=== PATIENT | female | born 1965 | race African-American/Black ===

== ENCOUNTER 2020-05-19 18:18 | Inpatient (IN) | payer BC, OTHER ==
[2020-05-19] VITALS (9 sets, daily range): BP systolic 151–229; BP diastolic 80–111
[~2020-05-19] VITALS: Ht 175.3 cm; Wt 101.2 kg
--- NOTE | ~2020-05-19 | HC ---
[facility] [place] [address] CONSULTATION Name: KATI JONES Room #: 244-P ADM IN M.R.#: [id number] Admission: 05/19/20 Attend Phys: Kan Flores MD Discharge: Date of : 69 Report #: [id number] THIS REPORT FOR: cc: RYAN - No family physician/PCP RYAN - No family physician/PCP Arsalan Jasso MD ~ DATE OF SERVICE: 05/19/2020 HISTORY OF PRESENT ILLNESS: A 54-year-old female patient who was seen by me for stroke. The patient's symptoms started at 1:00 p.m. today. She noticed right-sided weakness and some difficulty with the speech. 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 She decided to come to the Emergency Room this evening because she thinks she became worse. She had a very high blood pressure when she came in. She is on antihypertensive. She has not taken her blood pressure for a long time, so we do not know how much control the blood pressure is in this patient. REVIEW OF SYSTEMS: Indicate that she is antihypertensive, the control of blood pressure is not clear. She smokes on a daily basis. She drinks alcohol on a daily basis, but according to her, she did not drink that much, but she does not specify. The only medicine that she takes is lisinopril. I do not even know when was the last time the blood pressure was checked in this patient. A 14-point review of system was carried out, the main problem she has is hypertension. It looks like it is pretty severe hypertension. She did not have stroke in the past. PAST MEDICAL HISTORY: Negative for stroke. FAMILY HISTORY: Positive for what looks like stroke. SOCIAL HISTORY: She smokes and drinks alcohol. PHYSICAL EXAMINATION: The patient is alert, responsive. Her speech is markedly dysarthric. She has no problems comprehending but expression is severely impaired and this is because of dysarthria. Cranial nerve examination 2-12 was carried out. She does not appear to have any hemianopsia, but she has a right facial palsy. She has either grade 1 or grade 2 strength in right upper extremity. In the right lower extremity, her strength is 3/5. She says she can feel on both sides equally and her position sense is intact on the right side also. So, it appeared to be predominantly motor deficit. There is no meningeal sign. There is no carotid bruit. She is morbidly obese. Her cardiac examination is unremarkable. Blood pressure is 175/84, pulse is 99, respirations [address]. [address] [address] CONSULTATION Name: KATI JONES Room #: [facility] IN M.R.#: [id number] Admission: 05/19/20 Attend Phys: Kan Flores MD Discharge: Date of : 69 Report #: [id number] LABORATORY DATA: White count is 7.1, but she is anemic at a hemoglobin of 9.6. Potassium was a trace low at 3.0. GFR is normal at 80. She had a CT and CT angiogram. That does not appear to be showing any retrievable clot. IMPRESSION: The patient's clinical presentation is consistent with lacunar subcortical CVA. She has pretty profound deficit. The deficit has become worse since 1:00. There is typical history of subcortical lacunar cerebrovascular accident, where they continued to become worse and many times become completely paralyzed before this starts showing some recovery. I discussed that aspect with the patient and the daughter. I discussed with them that she is outside the TPA window, both for 3 hours or 4-1/2 hour and on the basis of images. She does not have any embolus, which can be retrieved at the moment and the history and examination appeared to be consistent with a lacunar cerebrovascular accident. I discussed with the Emergency Room physician. I will suggest permissive hypertension in this patient. When she came in, her blood pressure was 229/111. I will favor about 20% reduction in first 24 hours and then we can gradually lower it. She will need an MRI. Her potassium is low and that need to be corrected and I will suggest giving her dual antiplatelet therapy with Plavix and aspirin if she can swallow. Her blood pressure need to be closely monitored and she needs to be worked up for any other factors, which can predispose her to further strokes like hyperlipidemia, etc. The patient was discussed with the Emergency Room physician and I will also suggest giving her some fluid. Thank you very much for this referral. By: 07 00 Arsalan Jasso MD /nt
[2020-05-19] MEDS ORDERED: LISINOPRIL20 MG PO (19:03)
[2020-05-19 19:18] LABS: HEMATOCRIT 32.8 % (37.0-47.0); HEMOGLOBIN 9.6 gm/dL (12.0-15.0); MCH 17.5 pg (26.0-34.0); MCHC 29.2 g/dL (28.0-37.0); PLATELET COUNT 352 thou/uL (150-400); RBC 5.47 mil/uL (4.20-5.00); RDW 20.7 % (10.5-14.5); WBC 7.1 thou/uL (4.0-11.0)
[2020-05-19 19:25] LABS: CALCIUM 9.2 mg/dL (8.5-10.1); CREATININE 0.9 mg/dL (0.6-1.0); POTASSIUM 3.2 mmol/L (3.5-5.1)
[2020-05-19 19:31] LABS: ALBUMIN 3.3 g/dL (3.4-5.0); TOTAL BILIRUBIN 0.3 mg/dL (0.2-1.0); TOTAL PROTEIN 6.9 g/dL (6.4-8.2)
[2020-05-19 19:45] LABS: ABSOLUTE NEUTROPHILS 4.3 thou/uL (1.4-8.2)
[2020-05-19 19:46] LABS: ANISOCYTOSIS 2+; HYPOCHROMASIA 3+; MICROCYTES 3+; PLATELET ESTIMATE NORMAL; POIKILOCYTOSIS 1+; POLYCHROMASIA 1+
[2020-05-19 20:54] LABS: URINE BILIRUBIN NEGATIVE (Negative); URINE BLOOD NEGATIVE (Negative); URINE CLARITY CLEAR; URINE COLOR YELLOW; URINE GLUCOSE-RANDOM* NEGATIVE (Negative); URINE KETONES NEGATIVE (Negative); URINE LEUKOCYTES-REFLEX NEGATIVE (Negative); URINE NITRITE-REFLEX NEGATIVE (Negative); URINE PROTEIN (DIPSTICK) NEGATIVE (Negative); URINE UROBILINOGEN 0.2 E.U./dl (0.2-1.0)
--- NOTE | 2020-05-19 22:57 | NUR ---
This RN admitted patient at 2145 to ICU room 244. Lisa gtt for blood pressure support. Admission assessment and education complete. Will continue NIH scales and continue to monitor.
[2020-05-20] VITALS (31 sets, daily range): BP systolic 146–218; BP diastolic 74–129
[2020-05-20 04:36] LABS: ANION GAP 11 mmol/L (7-16); BUN 4 mg/dL (7-18); CALCIUM 9.4 mg/dL (8.5-10.1); CHLORIDE 103 mmol/L (98-107); CHOLESTEROL 246 mg/dL (<200); CO2 26 mmol/L (21-32); CREATININE 0.9 mg/dL (0.6-1.0); GLUCOSE 116 mg/dL (74-106); HDL CHOLESTEROL 43 mg/dL (>40); LDL CHOLESTEROL 183 mg/dL (<100); POTASSIUM 3.8 mmol/L (3.5-5.1); SODIUM 140 mmol/L (136-145); TC:HDL 5.7 Ratio (Not establshd); TRIGLYCERIDE 101 mg/dL (<150); VLDL 20 mg/dL (<40)
[2020-05-20 04:54] LABS: SERUM ASSESSMENT Clear
--- NOTE | 2020-05-20 07:20 | EKG ---
[address] [place] [address] ELECTROCARDIOGRAM REPORT Name: KATI JONES Room #: 244-P ADM IN M.R.#: [id number] Admission: 05/19/20 Attend Phys: Kan Flores MD Discharge: Date of : 69 Report #: [id number] [facility] ED Test Date: 2020-05-19 Test Time: 20:13:29 Pat Name: KATI JONES Department: Room: 244 Gender: F Cassandra Architect: myranda devries rn : 1965 Requested By: Aquiles Cadet Order Number: [id number] MD: Jhonny Fairchild Measurements Intervals Hayes Rate: 84 P: 68 FL: 146 QRS: 39 QRSD: 91 T: -88 QT: 387 QTc: 458 Interpretive Statements Sinus rhythm Nonspecific T abnormalities, lateral leads No previous ECG available for comparison Electronically Signed On 05-20-2020 7:20:22 WASHING MACHINE LOADER by Jhonny Fairchild [email or web address] <ELECTRONICALLY SIGNED> By: Jhonny Fairchild MD, [facility] 05/20/20719 12 12 Jhonny Fairchild MD, FACC /EPI
--- NOTE | 2020-05-20 10:30 | 2DMMODE ---
[facility] [place] [address] 2 D/M-MODE ECHOCARDIOGRAM Name: KATI JONES Room #: 244-P ADM IN M.R.#: [id number] Admission: 05/19/20 Attend Phys: Kan Flores MD Discharge: Date of : 69 Report #: [id number] THIS REPORT FOR: cc: FAM - No family physician/PCP FAM - No family physician/PCP Jhonny Fairchild MD [facility] ~ APPROVED REPORT Study performed: 05/20/2020 09:42:48 EXAM: Comprehensive 2D, Doppler, and color-flow Echocardiogram Patient Location: ICU Room #: 244 Status: routine BSA: 2.16 HR: 80 bpm BP: 201/90 mmHg Rhythm: NSR Other Information Study Quality: Good Indications CVA, HTN urgency. Hx: PR, tobacco abuse. Echo Enhancing Agent Indication: Rule out Shunt Agent(s) / Amount(s) Used: Agitated Saline 7 cc 2D Dimensions RVDd: 29.24 mm IVSd: 12.42 (7-11mm) LVOT Diam: 19.83 (18-24mm) LVDd: 45.61 mm PWd: 12.00 (7-11mm) Ascending Ao: 29.25 (22-36mm) LVDs: 29.32 (25-40mm) Aortic Root: 30.10 mm Volumes Left Atrial Volume (Systole) Single Plane 4CH: 51.95 mL Single Plane 2CH: 42.03 mL LA ESV Index: 23.00 mL/m2 Aortic Valve [facility] [address] [place] [address] 2 D/M-MODE ECHOCARDIOGRAM Name: KATI JONES Room #: 244-P [facility] IN .R.#: [id number] Admission: 05/19/20 Attend Phys: Kan Flores MD Discharge: Date of : 69 Report #: [id number] AoV Peak Ikrby.: 2.05 m/s AO Peak Gr.: 16.80 mmHg LVOT Max P.78 mmHg LVOT Max V: 1.39 m/s MARLON Vmax: 2.10 cm2 Mitral Valve E/A Ratio: 0.8 MV Decel. Time: 256.39 ms MV E Max Kirby.: 0.72 m/s MV A Kirby.: 0.94 m/s MV PHT: 74.35 ms IVRT: 83.04 ms Pulmonary Valve PV Peak Kirby.: 1.16 m/s PV Peak Gr.: 5.41 mmHg Pulmonary Vein P Vein S: 0.42 m/s P Vein A: 0.28 m/s P Vein D: 0.31 m/s P Vein A Dur.: 96.9 msec P Vein S/D Ratio: 1.35 Tricuspid Valve TR Peak Kirby.: 2.17 m/s RAP Estimate: 5.00 mmHg TR Peak Gr.: 19.00 mmHg PA Pressure: 24.00 mmHg Left Ventricle The left ventricle is normal size. There is normal LV segmental wall motion. Mild to moderate concentric left ventricular hypertrophy. Left ventricular systolic function is hyperdynamic. LVEF is 65-70%. Mild diastolic dysfunction is present. Right Ventricle The right ventricle is normal size. The right ventricular systolic function is normal. Atria The left atrium size is normal. No shunting noted with contrast bubble injection. The right atrium size is normal. Aortic Valve The aortic valve is normal in structure. Trace aortic regurgitation. There is no aortic valvular stenosis. Mitral Valve The mitral valve is normal in structure. There is no mitral valve [facility] [address] [place] [address] 2 D/M-MODE ECHOCARDIOGRAM Name: KATI JONES Room #: 244-P [facility] IN ..#: [id number] Admission: 05/19/20 Attend Phys: Kan Flores MD Discharge: Date of : 69 Report #: [id number] regurgitation noted. No evidence of mitral valve stenosis. Tricuspid Valve The tricuspid valve is normal in structure. Trace tricuspid regurgitation. Estimated PAP is 25mmHg. Pulmonic Valve Pulmonic valve is not well visualized. Great Vessels The aortic root is normal in size. The ascending aorta is normal in size. IVC is normal in size and collapses >50% with inspiration. Pericardium There is no pericardial effusion. <Conclusion> Normal left ventricular size Mild concentric hypertrophy Hyperdynamic systolic function EF 65% Grade 1 diastolic dysfunction Normal right ventricular size/function Normal atrial size Color-flow upper study was performed of the aortic/mitral/tricuspid/pulmonary valve Normal aortic/mitral valve structure and function Trace tricuspid valve insufficiency PA systolic pressure estimated at 25 mmHg No pericardial effusion <ELECTRONICALLY SIGNED> By: Jhonny Fairchild MD, FACC 05/20/20 1029 1029 1029 Jhonny Fairchild MD, FACC /INF
--- NOTE | 2020-05-20 10:51 | NUR ---
discussed with 5n liaison, there is new order for 5n eval, rt dx of stroke. cm passed on information to cm team, and bedside nurse. will cont following as needed for dc needs.
[2020-05-20 15:02] LABS: % SATURATION 4 % (20-39); IRON 18 ug/dL (50-170); TIBC 503 ug/dL (250-450)
--- NOTE | 2020-05-20 15:20 | NUR ---
PT ADMITTED REALTED TO ACUTE L SUBCORTICAL LACUNAR CVA. CM REVIEWED CHART AND SPOKE WITH THE CARE TEAM. CM CALLED AND SPOKE WITH PT'S DTR PAOLA THIS AFTERNOON. 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 SHE INDICATED THAT PT RESIDES IN A HOUSE WITH HER SPOUSE WITH 3 STEPS TO ENTER THE HOUSE AND 12 STEPS IN FROM THE GARAGE ONCE INSIDE ALL NEEDS ON 1 LEVEL. 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 NO ASSISTIVE DEVICES, HH, OR SNF HX. 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 5N HAS BEEN CONSULTED. CM TO FOLLOW INDICATED WITH DC PLANNING.
[2020-05-21] VITALS (13 sets, daily range): BP systolic 127–164; BP diastolic 50–92
[2020-05-21 03:06] LABS: GLYCOHEMOGLOBIN (HGB A1C) 5.8 % (4.8-5.6)
--- NOTE | 2020-05-21 05:58 | NUR ---
ASSUMED PT CARE AT 1900. VSS. PT A&0X4. SLURRED SPEECH, MILD APHASIA, LEFT FACIAL DROOP NOTED. HOWEVER PT IS ABLE TO SWALLOW PO MEDS WELL. PT COMPLAINS OF PAIN ON LEFT KNEE S/P FALLL. PAIN MANAGED PER MAR, ELEVATION AND ICE. PT IS STABLE NOW. WILL CONTINUE TO MONITOR PER POC
--- NOTE | 2020-05-21 10:33 | NUR ---
5N ASSESSED AND INDICATED THAT PT WOULD BE APPROPRIATE FOR ADMISSION ONCE MEDICALLY STABLE. CM SPOKE WITH PT'S NURSE THIS AM AND SHE INDICATED THAT PT IS DOING WELL AND ANTICPATED TO TRANSFER OUT OF ICU TO CCU RM 217 TODAY. CM CALLED AND NOTIFIED PT'S DTR PAOLA. SHE INDICATED THAT PT AND FAMILY WERE AGREEABLE TO 5N ONCE PT IS MEDICALLY STABLE. CM INDICATED THAT THEY WOULD SUBMIT FOR INSURANCE AUTH WHEN APPROPRIATE. CM TO FOLLOW INDICATED WITH DC PLANNING.
--- NOTE | 2020-05-21 15:22 | NUR ---
PT TRANSFERED. FROM ICU IN STABLE CONDITION. ALERT AND ORIENTED. HAS SLURRED SPEECH AND RIGHT SIDED WEAKNESS. NIH SCORE A 6. SEEN BY NEUROLOGIST. CALL MADE TO THE ORTHOPEDIC DOCTOR STILL WAITING FOR A CALL BACK.
--- NOTE | 2020-05-21 17:04 | NUR ---
PATIENT IS A CANDIDATE FOR ACUTE REHAB AND WISHES TO COME TO 5N FOR THAT CARE. AUTHORIZATION REQUESTED FROM PATIENT'S INSURANCE. AWAITING RESPONSE. THANK YOU FOR THIS REFERRAL.
--- NOTE | 2020-05-22 02:55 | NUR ---
CARE ASSUMED AT 1900. PT ORIENTED TO SELF, LETHERGIC, AND INCOHERENT DUE TO POOR ORAL SECRETION CLEARANCE. PT FECAL MANAGEMENT LEAKING LOOSE STOOL. TUBE READJUSTED. Q6H BLOOD SUGAR CHECKS STABLE. PT ALSO WAS RESTLESS , TRYING TO GET OUT OF BED AND ALSO SOME AGGRASSIVENESS WHILE DOING CARES. HALDOL AND ATIVAN GIVEN. ELEVATED HR TREATED WITH METOPROL 5 MG IV. PT ON CONTINOUS PALSE OX DUE TO EPISODES OF 02 IN 80s, ON 5L NC. WILL CONTINUE TO MONITOR AND FOLLOW POC.
[2020-05-22 03:59] VITALS: BP 130/74
[2020-05-22 05:36] LABS: HEMATOCRIT 34.5 % (37.0-47.0); HEMOGLOBIN 9.9 gm/dL (12.0-15.0); MCH 17.5 pg (26.0-34.0); MCHC 28.7 g/dL (28.0-37.0); MCV 61.1 fL (80.0-100.0); RBC 5.65 mil/uL (4.20-5.00); WBC 8.1 thou/uL (4.0-11.0)
[2020-05-22] MEDS ORDERED: CLOPIDOGREL75 MG PO (09:39)
[2020-05-22] MEDS ORDERED: LIPITOR40 MG PO (09:40)
[2020-05-22] MEDS ORDERED: CATAPRES0.1 MG PO (09:40)
[2020-05-22] MEDS ORDERED: ADULT LOW DOSE81 MG PO (09:40)
[2020-05-22] MEDS ORDERED: PEPCID20 MG PO (09:41)
[2020-05-22 11:07] LABS: ANA INTERPRETATION Negative (Negative)
[2020-05-22 12:46] VITALS: BP 123/70
--- NOTE | 2020-05-22 15:54 | NUR ---
PATIENT TRANSFER TO REHAB. DISCHARGE PAPER WORK REVIEWED WITH PATIENT. IV LEFT IN PER REQUEST OF CLINICAL DERMATOLOGIST. [facility] PERFORMED PRIOR TO DISCHARGE. PATIENT TRANSFERED WITH BELONGINGS.
--- NOTE | 2020-05-22 16:37 | NUR ---
Pt dcing to 5N acute rehab this afternoon. Auth rec'd per the 5N liason. Pt and dtr aware and agreeable. [facility] info given for pt to see if she can establish them as per pcp;family to help with this. 5N cm to follow for any hh/dme/or outpt therapy needs at mt.
[2020-05-23 20:06] LABS: SYPHILIS AB Non Reactive (Non Reactive)
== END 2020-05-22 16:17 | DRG 65 ==
LOC: ER 18:18 → EROBS 20:57 → ICU 20:57 → 2N 05-21 11:42
PROVIDERS: Emergency Medicine; Nurse Practitioner; Nurse Practitioner Family; Psychiatry & Neurology Neuromuscular Medicine; ADMIT Hospitalist; ATTEND Hospitalist
DX: I63.81 Other cerebral infarction due to occlusion or stenosis of small artery (principal); I16.1 Hypertensive emergency; G81.91 Hemiplegia, unspecified affecting right dominant side; R47.01 Aphasia; I10 Essential (primary) hypertension; M25.462 Effusion, left knee; K21.9 Gastro-esophageal reflux disease without esophagitis; R47.1 Dysarthria and anarthria; R29.810 Facial weakness; Z20.822 Contact with and (suspected) exposure to COVID-19; D50.9 Iron deficiency anemia, unspecified; E66.9 Obesity, unspecified; Z71.6 Tobacco abuse counseling; Z79.82 Long term (current) use of aspirin; Z79.899 Other long term (current) drug therapy; Z68.32 Body mass index [BMI] 32.0-32.9, adult
CPT/HCPCS: 10078; 10797

== ENCOUNTER 2020-05-22 14:09 | Inpatient (IN) | payer BC, OTHER ==
[~2020-05-22] VITALS: Ht 167.6 cm; Wt 100.9 kg
[~2020-05-22 14:09] MED LIST: ADULT LOW DOSE81 MG PO; CATAPRES0.1 MG PO; CLOPIDOGREL75 MG PO; LIPITOR40 MG PO; LISINOPRIL20 MG PO; PEPCID20 MG PO
--- NOTE | 2020-05-22 15:57 | NUR ---
chart review. she going to go to acute rehab this afternoon. cm visited with her daughter helio malone via phone call. intro to cm, team meeting, and transition of care. elba is 1st contact. noted pt lives with spouse in ranch style home. 3 steps to enter. 12 steps in from garage then all in main level. she independent prior to hospital. 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 no hh or rehab in past. will cont following as needed for dc needs.
[2020-05-22 17:00] VITALS: BP 144/65
--- NOTE | 2020-05-22 17:06 | NUR ---
1615 PATIENT ADMITTED TO ROOM 514. PATIENT IS ALERT AND ORIENTED X4. PATIENT HAS RIGHT SIDED WEAKNESS, AND EXPRESSIVE APHAGIA. PATIENT LUNGS ARE CLEAR AND DEMINISHED. PATIENT IS ON R.A. ABD IS SOFT WITH BSX4. UP TO BSC WITH ASSIST OF 2 STAFF AND GAIT BELT TO BSC. BS 135. DINNER SERVED. ST HERE TO DO SPEECH EVAL AND SWALLOWING EVAL. PATIENT UPGRADED TO THIN LIQUIDS. PATIENT HAS S.L. IN HER LEFT FORARM. PATIENT IS UP IN THE CHAIR FOR DINNER. FALL AND SAFETY PROTOCOLS IN PLACE. DENIES PAIN AT THIS TIME. NO SKIN ISSUES. PT/OT EVALS TO BE DONE IM THE A.M. CALL LIGHT IN REACH. ALL CONSENTS SIGNED. WILL CONTINUE TO MONITER.
[2020-05-22 20:04] VITALS: BP 157/81
--- NOTE | 2020-05-23 00:37 | NUR ---
PT ALERT AND ORIENTED X 4. SLURRED SPEECH AND EXPRESSIVE APHASIA NOTED. RIGHT SIDED WEAKNESS. PT TOOK HS MEDS ONE AT A TIME WITH WATER WITHOUT DIFFICULTY. SALINE LOCK INTACT TO LFA. PT DENIES PAIN OR DISCOMFORT. BED ALARM ON FOR SAFETY. PT APPEARS TO BE SLEEPING ON HOURLY ROUNDS.
[2020-05-23 05:30] LABS: HEMATOCRIT 32.8 % (37.0-47.0); HEMOGLOBIN 9.1 gm/dL (12.0-15.0); MCHC 27.6 g/dL (28.0-37.0); MCV 61.5 fL (80.0-100.0); RBC 5.34 mil/uL (4.20-5.00); RDW 20.5 % (10.5-14.5); WBC 13.2 thou/uL (4.0-11.0)
[2020-05-23 06:00] LABS: POTASSIUM 3.8 mmol/L (3.5-5.1)
[2020-05-23 08:00] VITALS: BP 168/77
--- NOTE | 2020-05-23 13:02 | NUR ---
Nutrition: pt admitted with acute left lacunar CVA, right hemiparesis to rehab unit. New admission consult received. Chart reviewed. Pt reports po intake ~50% of meals. Agreeable to ensure daily due to suboptimal intake. On modified diet per ST and recently liquids upgraded to thins. RD obtained food preferences. Stable weights reports. BMI 35, obesity class 2. Hx DM but BG controlled. If po improves to 75% of meals, rec add heart healthy to diet order. Low nutrition risk otherwise.
--- NOTE | 2020-05-23 14:00 | NUR ---
ASSUMED CARE AT 0700. SLEPT FAIRLY WELL. DENIES ANY PAIN. ALERT AND ORIENTATED, EXPRESSIVE APHASIA. L KNEE SWELLING IS DONE WITH NO COMPLAINS. PT RECEIVED HER IV IRON 1ST DOSE THIS AFTERNOON. R SIDED WEAKNESS WITH MOD HAND JUVENILE PROBATION OFFICER. PARTICIPATED IN THERAPIES, SLOWLY PROGRESSING TOWARDS GOAL. APPETITE FAIR, ABLE TO SELF FEED, ATE 25-50% OF MEALS. CONT TO MONITOR.
[2020-05-23 20:00] VITALS: BP 166/86
--- NOTE | 2020-05-24 04:11 | NUR ---
CARE ASSUMED 1900. PT ALERT AND ORIENTED. VITALS STABLE. PT DENIES ANY PAIN. NO NAUSEA OR VOMITING. RIGHT SIDED WEAKNESS SEEM TO BE IMPROVED PER THE PATIENT. PT NOTED TO BE INCONTINENT. AMBULATES WITH WALKER X 1 ASSIST. WILL CONTINUE TO MONITOR AND FOLLOW POC
[2020-05-24 08:00] VITALS: BP 155/79
--- NOTE | 2020-05-24 11:05 | NUR ---
ASSUMED CARE AT 0700. SLEPT FAIRLY WELL. DENIES ANY PAIN. ALERT AND ORIENTATED, HAS EXPRESSIVE APHASIA. APPETITE FAIR. HAD A BM TODAY. DIURESING ADEQ. CONTINENCE OF BOWEL AND BLADDER. PARTICIPATED IN THERAPY. TOLERATES MEDS WITH THIN LIQ. UP WITH MIN ASSIST WITH WALKER. CONT TO MONITOR.
[2020-05-24 19:05] VITALS: BP 155/76
--- NOTE | 2020-05-25 02:40 | NUR ---
assumed care approx 1900 evening 05/24. pt sitting up in recliner at change of shift alert and oriented x4, appropriate and cooperative. pt incontinent of urine, assisted to bathroom to void and change into gown. pt pleasant and cooperative. pt took hs meds with water tolerating well. pt appears to be sleeping soundly with hourly rounding. bed alarm on and call light in reach. will continue to monitor.
[2020-05-25 07:55] VITALS: BP 187/87
--- NOTE | 2020-05-25 10:17 | NUR ---
ASSUMED CARE AT 0700. PATIENT IS ALERT AND ORIENTED X4. PATIENT HAS RIGHT SIDED WEAKNESS. PATIENT HAS EXPRESSIVE APHAGIA. PATIENT IS UP WITH ASSIST OF 1 STAFF AND GAIT BELT. LUNGS ARE CLEAR, ABD IS SOFT WITH BSX4. UP TO THE BATHROOM TO VOID ADA COLORED URINE. PATIENT HAS S.L. IN HER RIGHT F.A. IV SITE IS WITHOUT REDNESS OR SWELLING. FALL AND SAFETY PROTOCOLS IN PLACE. DENIES PAIN AT THIS TIME. CONTINUES TO PROGRESS SLOWLY TOWARDS D/C GOALS. WILL CONTINUE TO MONITER.
[2020-05-25 19:40] VITALS: BP 159/92
--- NOTE | 2020-05-25 21:52 | NUR ---
1900 CONTINUED CARE AT THIS TIME. NO CHNAGES NOTED. WILL CONTINUE TO MONITER
[2020-05-26 08:00] VITALS: BP 149/67
--- NOTE | 2020-05-26 11:02 | NUR ---
ASSUMED CARE AT
[2020-05-26 19:55] VITALS: BP 171/77
--- NOTE | 2020-05-27 02:15 | NUR ---
UP WITH MIN ASSIST TO BED, RIGHT SIDE WEAKNESS. MAKES LIGHT USE OF WALKER. MINIMAL EXPRESSIVE APHASIA, VERY PLEASANT. AWARE OF NEED FOR OCCULT BLOOD WITH NEXT BM. HAD MIRALAX LAST EVENING SINCE NO BM SINCE 05/24.
[2020-05-27 07:15] VITALS: BP 156/75
--- NOTE | 2020-05-27 10:22 | NUR ---
ASSUMED CARE AT 0700 THIS MORNING. PT. SITTING ON SIDE OF BED, EATING BREAKFAST. SHE WAS INFORMED THAT A "HAT" WAS PLACED IN HER TOILET SO WE CAN OBTAIN A STOOL SAMPLE TO CHECK FOR OCCULT BLOOD. SHE VERBALIZED UNDERSTANDING OF INFORMATION. SHE WAS PLEASANT AND COOPERATIVE WITH TAKING HER MEDICATIONS, AND ASSESSMENT. NO NEW PROBLEMS NOTED. ASSESSMENT UNREMARKABLE. SHE HAS RFA IV WHICH IS PATENT, NO REDNESS NOTED. SHE HAS A RIGHT HEMIPARESIS. SHE GETS UP WITH ASSIST OF ONE, GAIT BELT AND WALKER. SHE AMBULATES WELL.
--- NOTE | 2020-05-27 13:42 | NUR ---
team meeting, reccomendation: vital stim with speech. diet mech sofe with thin liquids. referral for ability cammy after dc. [facility] paper work. dc 06/03 with ability cammy, if insurance doesnt cover then do outpt therapy (pt, ot, st with vital stim).
[2020-05-27 20:34] VITALS: BP 150/77
--- NOTE | 2020-05-28 03:40 | NUR ---
Assumed pt care at 1900. A/OX4 w/expressive aphasia but able to make needs known,VSS. Denied pain on assessment. Up with AX1,GB/RW w/o any problems noted. Pending OBS collection. Fall precautions in place, calls approp for help. Resting quietly at this time w/o any distress will continue to monitor pt.
[2020-05-28 08:00] VITALS: BP 169/91
--- NOTE | 2020-05-28 09:34 | NUR ---
ASSUMED CARE AT 0700. SLEPT FAIRLY WELL. ALERT AND ORIENTATED, HAS EXPRESSIVE APHASIA. ABLE TO MAKE NEEDS KNOWN. DENIES ANY PAIN. UP WITH MIN ASSIST TO BATHROOM. NO BM TODAY. OCCULT STOOL PENDING. APPETITE FAIRLY GOOD. TOLERATES HER MEDS WITH THIN LIQUID. PARTICIPATE IN BRETT THERAPIES. EAGER TO BE DC HOME SOON. PLAN TO GO HOME NEXT TUESDAY. CONT TO MONITOR.
--- NOTE | 2020-05-28 13:01 | NUR ---
stephen spoke with tang chawla, liaison will come out 05/29/20 1015 and visit with guero about rehab day program at mo from acute rehab
[2020-05-28 14:05] VITALS: BP 115/68
[2020-05-28 20:00] VITALS: BP 155/69
--- NOTE | 2020-05-29 04:10 | NUR ---
05-28-20 CARE TRANSFERRED 1899. PT AAOX4, VSS, RR EVEN AND NONLABORED ON RA; RIGHT FOREARM S/L IV DRESSING CLEAN AND DRY. PT HAD NO DIFFICULTIES DURING MEDICATION ADMIN. B/P RECHECKED 2300 122/60, P60. ZERO S/S OF ACUTE DISTRESS NOTED, PT WILL CONTINUE TO BE MONITOR
[2020-05-29 08:13] VITALS: BP 154/95
--- NOTE | 2020-05-29 11:37 | NUR ---
ASSUMED CARE AT 0700. SLEPT FAIRLY WELL. REPORTED SOME ACHINESS AND SWELLING IN L KNEE. ORDERS RECEIVED FOR TYLENOL AND ICE PACK TO SITE. PAIN IS STABLE AND CONTROLLED. ALERT AND ORIENTATED. APPETITE GOOD. DIURESING AND HAD A BM YESTERDAY. PARTICIPATED IN THERAPY AND PROGRESS TOWARDS GOAL.
[2020-05-29 20:00] VITALS: BP 145/79
--- NOTE | 2020-05-29 20:00 | NUR ---
AWARE OF MEDS, STATES THAT HER BP MEDS ARE BEING ADJUSTED BEFORE SHE GOES HOME AND THAT SHE NOW HAS ADDITIONAL VITAMINS TO HELP AVOID ANEMIA. STEADY UP IN ROOM - MOD I. WILL RECHECK HER BP BEFORE GIVING CATAPRES AGAIN
[2020-05-30 06:00] VITALS: BP 163/91
--- NOTE | 2020-05-30 08:50 | PLAN ---
[facility] [address] REHAB UNIT PLAN OF CARE Name: KATI JONES Room #: [facility]A [facility] IN .R.#: [id number] Admission: 05/22/20 Attend Phys: Len Mendoza MD Discharge: Date of : 69 Report #: [id number] THIS REPORT FOR: cc: RYAN - No family physician/PCP RYAN - No family physician/PCP Len Mendoza MD ~ DATE OF SERVICE: 05/24/2020 PROGRESS NOTE/OVERALL PLAN OF CARE SUBJECTIVE: The patient was seen back earlier. She is in no distress. Temperature 36.5, pulse 60, respirations 18, blood pressure 155/79. She is in the transitional apartment. She has definite speech difficulties with moderate to severe expressive deficits. She is on a mechanical soft, thin liquid diet. She has right-sided hemiparesis. She is working in therapies with transfers at a min assist and she is able to ambulate up to 150 feet min assist with a front-wheeled walker. In occupational therapy, lower body dressing is moderate assistance with upper body dressing supervision. ASSESSMENT: 1. Left lacunar cerebrovascular accident. 2. Right hemiparesis. 3. Facial droop on the right with dysarthria. 4. Previous left knee acute pain with effusion, status post fall, status post aspiration, 05/21/2020. 5. Hypertensive urgency. 6. Tobacco abuse. 7. Iron deficiency anemia. 8. History of obesity with history of a gastric sleeve. PLAN: The overall plan of care is based on the preadmission screen and information gathered from therapy assessments. 1. Estimated length of stay is probably at least 10-14 days. 2. Medical prognosis is reasonably good. 3. Anticipated interventions include the interdisciplinary acute inpatient rehabilitation program. 4. Anticipated functional outcomes would be for the patient to become modified independent with transfers, mobility, ADLs, improvement in communication to the point where she can return back to the home setting. 5. Discharge destination would be back home with her . She notes that her mother, who I believe was from [place] is planning on coming in and assisting her and that her mother who is in reasonable health. 6. Expected therapy by discipline includes PT and OT and speech 1 hour per day each five days a week throughout the duration of the acute inpatient rehabilitation stay. [address] [address] REHAB UNIT PLAN OF CARE Name: KATI JONES Room #: 501-A [facility] IN ..#: [id number] Admission: 05/22/20 Attend Phys: Len Mendoza MD Discharge: Date of : 69 Report #: [id number] The patient's prognosis for significant practical improvement within a reasonable period of time appears good. Given the patient's complex medical condition and risk of further medical complication, rehabilitation services could not be safely provided at a lower level of care such as a custodial facility. <ELECTRONICALLY SIGNED> By: Len Mendoza MD 05/30/20 0850 1152 1257 Len Mendoza MD /FARNAZ
--- NOTE | 2020-05-30 19:19 | NUR ---
Pt working with therapy and very interactive. Pt progressing toward goals. Expressive aphasia present but rn had not difficulty understanding her.
[2020-05-30 19:45] VITALS: BP 142/63
--- NOTE | 2020-05-31 01:55 | NUR ---
UP TO TOILET WITH SBA AND WALKER. DISCUSSED WITH PATIENT PLAN TO ASK FOR 9 AM MEDS WHILE SHE IS HAVING BREAKFAST. SHE DID NOT REMEMBER TO ASK FOR HS MEDS LAST NIGHT. EXPLAINED TO PATIENT THAT WE ARE JUST TRYING TO GET HER IN THE HABIT OF TAKING HER MEDS IN A TIMELY MANNER AND SHE DOES AGREE THAT SHE HAS QUITE A FEW IN THE MORNING WITH THE ADDITION OF PILLS FOR ANEMIA
[2020-05-31 04:52] LABS: CALCIUM 9.4 mg/dL (8.5-10.1); CREATININE 0.9 mg/dL (0.6-1.0); MAGNESIUM 1.8 mg/dL (1.8-2.4); POTASSIUM 4.1 mmol/L (3.5-5.1)
[2020-05-31 04:54] LABS: ABSOLUTE NEUTROPHILS 4.1 thou/uL (1.4-8.2); BASOPHILS 1.1 % (0.0-2.0); HEMATOCRIT 33.9 % (37.0-47.0); HEMOGLOBIN 9.8 gm/dL (12.0-15.0); LYMPHOCYTES 28.9 % (24.0-44.0); MCH 19.1 pg (26.0-34.0); MCV 65.6 fL (80.0-100.0); PLATELET COUNT 324 thou/uL (150-400); RBC 5.16 mil/uL (4.20-5.00); WBC 7.3 thou/uL (4.0-11.0)
[2020-05-31 05:30] LABS: ANISOCYTOSIS 2+; HYPOCHROMASIA 3+; LARGE PLATELETS FEW; MICROCYTES 3+
[2020-05-31 05:31] LABS: OVALOCYTES FEW; SCHISTOCYTES OCCASIONAL
[2020-05-31 08:00] VITALS: BP 158/79
--- NOTE | 2020-05-31 17:00 | NUR ---
Assumed pt care at 0700. pt was alert and oriented 4x. pt has expressive aphasia. sba underwriter was able to understand pt. pt ambulates with a walker. pt is aware all her meds. pt worked with therapy. pt is excited to go home. pt vital signs were rechecked before admin of clonidine, BP 134/71, P 60. pt is able to make her needs known. will conitnue to monitor pt.
[2020-05-31 20:00] VITALS: BP 143/73
--- NOTE | 2020-05-31 22:05 | NUR ---
PT PROGRESSING TOWARDS D/C GOALS. A&OX4. VSS. AFEBRILE. HRR LUNGS SLIGHTLY DIMINSHED BUT UNLABORED ON RA. EXPRESSIVE APHASIA NOTED. RIGHT SIDE HEMIPARESIS NOTED. DENIED PAIN. TOOK MEDS WITHOUT DIFFICULTY. PT VOICED EXCITED TO BE GOING HOME SOON. SHE DID NOT REQUEST HER MEDS. NS ASKED IF SHE WAS READY TO TAKE HER MEDS. SHE FORGOT TO ASK. WILL CONTINUE TO MONITOR PT FOR CHANGES IN ASSESMENT. PT CURRENTLY RESTING QUIETLY WAITING FOR BED.
[2020-06-01 06:20] VITALS: BP 166/58
--- NOTE | 2020-06-01 07:41 | NUR ---
Pt's pulse 45 this am. Notified day shift nurse I held clonidine due to low pulse and to attempt to give when pt wakes up for breakfast if her pulse goes back up.
[2020-06-01 08:23] VITALS: BP 179/71
--- NOTE | 2020-06-01 17:51 | NUR ---
ASSUMED PATIENT INGRID AT 0700. A/0 X4. NO DISDRESSING NOTED. PEOGRESS TOWARD POC GOALS.
[2020-06-01 20:46] VITALS: BP 128/62
--- NOTE | 2020-06-02 01:11 | NUR ---
ASKING FOR MEDS AT 1999, PREFERS TO TAKE THEM THEN RATHER THAN LATER. UP TO TOILET INDEPENDENTLY USING WALKER. STATES SHE IS LOOKING FORWARD TO GOING HOME ON TUESDAY THE .
[2020-06-02 07:15] VITALS: BP 194/85
--- NOTE | 2020-06-02 08:49 | NUR ---
ASSUMED CARE AT 0700. PATIENT IS ALERT AND ORIENTED X4. PATIENT SLURRED SPEECH IS IMPROVING. RIGHT SIDED WEAKNESS IS IMPROVING. PATIENT IS MOD/I IN ROOM. UP IN CHAIR FOR MEALS. LUNGS ARE CLEAR. ABD IS SOFT WITH BSX4. UP TO THE BATHROOM TO VOID ADA COLORED URINE. PLAN D/C TO HOME IN A.M. FALL AND SAFETY PROTOCOLS IN PLACE. DENIES PAIN AT THIS TIME. CONTINUES TO PROGRESS TOWARDS D/C GOALS. WILL CONTINUE TO MONITER.
[2020-06-02] MEDS ORDERED: VITAMIN D3125 MC1 PO (10:13)
[2020-06-02] MEDS ORDERED: CLOPIDOGREL75 MG PO (10:13)
[2020-06-02] MEDS ORDERED: ZESTRIL40 MG PO (10:13)
[2020-06-02] MEDS ORDERED: FOLIC ACID1 MG PO (10:13)
[2020-06-02] MEDS ORDERED: VITAMIN B-12500 MCG PO (10:13)
[2020-06-02] MEDS ORDERED: CATAPRES0.1 MG PO (10:13)
[2020-06-02] MEDS ORDERED: LIPITOR40 MG PO (10:13)
[2020-06-02] MEDS ORDERED: PEPCID20 MG PO (10:14)
[2020-06-02 19:05] VITALS: BP 157/78
--- NOTE | 2020-06-03 00:30 | NUR ---
ASSESSED AT START OF SHIFT PT A&04 DENIES PAIN. CALLED AND ASKED FOR NIGHT MEDICINE PRIOR TO GOING TO BED. PT ANTICIPATING D/C TOMORROW. SLIGHT SLURRED SPEECH NOTED. PT MOD I IN ROOM. CALLS APPROPRIATELY. CALL LIGHT AT REACH AND WILL CONT TO MONITOR. BP CHECKED AND MED GIVEN.
[2020-06-03 08:00] VITALS: BP 118/60
--- NOTE | 2020-06-03 10:21 | NUR ---
ASSUMED CARE AT 0700 THIS MORNING. PT. UP IN HER CHAIR EATING BREAKFAST. SHE IS PLEASANT AND COOPERATIVE WITH TAKING HER MEDICATIONS AND ASSESSMENT. ASSESSMENT WAS UNREMARKABLE. PT. IS VERBALIZING EXCITEMENT ABOUT BEING DISCHARGED TODAY. SHE IS UNAWARE ABOUT WHAT TIME THAT WILL OCCUR. SHE IS AWAKE, ALERT AND ORIENTED TIMES 4 TODAY. SHE IS MOD I IN HER ROOM. SHE STATES HER LAST BM WAS 06/01. BS ARE ACTIVE IN ALL 4 QUADRANTS.
[2020-06-03 10:56] VITALS: BP 180/68
--- NOTE | 2020-06-03 12:49 | NUR ---
team meeting, cont with dc home today with ability cam[facility] therapy starting on , no driving until cleared by MD. family and her children for support at home. fww from provider [facility]
--- NOTE | 2020-06-04 13:56 | HC ---
Formerly [facility] [place] [address] CONSULTATION Name: KATI JONES Room #: 501-A [facility] IN ..#: [id number] Admission: 05/22/20 Attend Phys: Len Mendoza MD Discharge: 06/03/20 Date of : 69 Report #: [id number] THIS REPORT FOR: cc: RYAN - Anjelica family physician/PCP RYAN - Anjelica family physician/PCP Everardo Linares PhD ~ DATE OF SERVICE: 05/24/2020 NEUROBEHAVIORAL STATUS EXAM AGE: 54 ATTENDING PHYSICIAN: Len Mendoza MD COATING MIXER SUPERVISOR: Everardo Linares, PhD CLINICAL PRESENTATION: The patient is a 54-year-old female admitted to the hospital on 05/19/2020 with right-sided weakness and slurred speech. She was diagnosed with hypertensive urgency with a blood pressure in the 200s. An MRI confirmed an acute left deep white matter lacunar infarction. Additionally, she fell when entering the hospital while getting out of a car on her left knee and x-rays revealed a large effusion, but no obvious fracture. She had a left knee joint aspiration at bedside by Orthopedics. She had a good immediate improvement in range of motion and decreased pain. Her medical problem list included hypertensive urgency and stroke. Assessment on admission to the rehab unit was a left CVA, right hemiparesis, facial droop and dysarthria, left knee acute pain, effusion, status post fall and status post aspiration, hypertensive emergency, tobacco abuse, iron deficiency anemia, obesity with a history of gastric sleeve. A complete description of her medical condition and history can be found in her medical records. Neuropsychological consultation was requested to provide assistance in the assessment of cognitive and emotional status and to provide recommendations and services. Prior to this most recent admission, she was living with her and daughter. She has 4 children. 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 She is a high school graduate and of 4 years in the [employer]. She has a certificate in medical coding and billing. TECHNIQUES UTILIZED: Clinical interview, review of medical records, staff consultation and behavioral observation, mini mental status exam [address] [address] CONSULTATION Name: KATI JONES Room #: 501-A [facility] IN ..#: [id number] Admission: 05/22/20 Attend Phys: Len Mendoza MD Discharge: 06/03/20 Date of : 69 Report #: [id number] EXAMINATION FINDINGS: The patient was alert and cooperative with the assessment. There is no evidence of aphasia. Her thoughts are logical and goal oriented. There is no evidence of thought disorder. She was presented with dysarthric speech. There are no auditory or visual hallucinations. She does not report suicidal ideation. The patient does report subjective feelings of depression. Right-sided weakness interfered with ability to assess constructive functioning. The patient has decreased articulation because of the dysarthric speech. She does not report difficulty with memory or word finding. Performance on the MMSE 2 brief version is within normal limits with a raw score of 14/16. She was 3/3 for initial registration, 5/5 for orientation to time and place and 1/3 for immediate recall of 3 items after a brief time delay and distraction. Performance on the MMSE 2 standard version was 23/30, which is a T score 31 and percentile rank of 30. She was 1/5 for serial sevens, 2/2 for naming, 1/1 for repetition, 3/3 for auditory comprehension. She could read and follow a single command and write a sentence. The patient was not able to evaluate constructive tasks secondary to right hemiparesis. 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 Adjustment disorder with depressed mood. RECOMMENDATIONS: Continued verbal praise and complements about participation in therapies. Verbal reassurance will also assist her overall sense of wellbeing. Helping her identify aspects of recovery during her therapeutic program will be helpful. Comparing current functioning with those levels of ability that were impaired immediately following the stroke will also assist. The patient will benefit from a followup Neuropsych upon resolution of her acute medical condition. Thank you very much for allowing me to provide the consultation on this patient. <ELECTRONICALLY SIGNED> By: Everardo Linares, PhD 06/04/20 [id number] Everardo Linares, PhD /nt
== END 2020-06-03 13:30 | disposition home or self-care (01) | DRG 56 ==
PROVIDERS: Nurse Practitioner; Nurse Practitioner Family; ADMIT Physical Medicine & Rehabilitation; ATTEND Physical Medicine & Rehabilitation
DX: I69.351 Hemiplegia and hemiparesis following cerebral infarction affecting right dominant side (principal); I63.9 Cerebral infarction, unspecified; R53.81 Other malaise; I16.0 Hypertensive urgency; D50.9 Iron deficiency anemia, unspecified; E66.9 Obesity, unspecified; F01.50 Vascular dementia, unspecified severity, without behavioral disturbance, psychotic disturbance, mood disturbance, and anxiety; M25.462 Effusion, left knee; E55.9 Vitamin D deficiency, unspecified; E53.8 Deficiency of other specified B group vitamins; I10 Essential (primary) hypertension; F43.21 Adjustment disorder with depressed mood; K21.9 Gastro-esophageal reflux disease without esophagitis; E78.5 Hyperlipidemia, unspecified; I69.392 Facial weakness following cerebral infarction; I69.322 Dysarthria following cerebral infarction; Z68.35 Body mass index [BMI] 35.0-35.9, adult; Z20.822 Contact with and (suspected) exposure to COVID-19
CPT/HCPCS: 10112

== ENCOUNTER → 2020-07-30 | Outpatient (CLI) | payer BC ==
[~2020-07-30] MED LIST changes: +FOLIC ACID1 MG PO; +VITAMIN B-12500 MCG PO; +VITAMIN D3125 MC1 PO; +ZESTRIL40 MG PO
== END ==
LOC: ULTRA 08:53
PROVIDERS: ATTEND Family Medicine
DX: N28.1 Cyst of kidney, acquired (principal); I63.9 Cerebral infarction, unspecified; I10 Essential (primary) hypertension